=== PATIENT | female | born 1975 | race Two or more races ===

== ENCOUNTER 2025-05-08 10:46 | Emergency (ER) | payer SELFPAY ==
[2025-05-08 11:01] VITALS: BP 143/93; PULSE 82; RESP 16; TEMP 97.2; BMI 42.4
[2025-05-08 13:24] LABS: HCG,QUALITATIVE URINE Negative
[2025-05-08 13:28] LABS: EPI CELLS >36 /uL (0-25.1); HYALINE CASTS 1 /uL (0-3.1); URINE APPEARANCE CLOUDY; URINE BACTERIA 1508 /uL (0-1359); URINE BILIRUBIN NEGATIVE (NEGATIVE); URINE COLOR YELLOW; URINE GLUCOSE (UA) NEGATIVE (NEGATIVE); URINE KETONE TRACE (NEGATIVE); URINE LEUK ESTERASE TRACE (NEGATIVE); URINE NITRITE NEGATIVE (NEGATIVE); URINE PROTEIN TRACE (NEGATIVE); URINE RBC 18 /uL (0-23.9); URINE UROBILINOGEN 0.2 mg/dL (0.2-1.0); URINE WBC 12 /uL (0-25.8)
[2025-05-08 15:25] LABS: HCV DIAGNOSTIC IN-HOUSE W/RFLX NON-REACTIVE (NONREACTIVE)
[2025-05-08 15:27] LABS: HIV INTERPRETATION NEGATIVE (NEGATIVE)
== END 2025-05-08 12:56 | disposition home or self-care (01) ==
LOC: JERFT 10:46
DX: K64.4 Residual hemorrhoidal skin tags (principal)
CPT/HCPCS: 36415; 81003; 84703; 86803; 87086; 87389; 87491; 87591; 99284-25